=== PATIENT | female | born 1995 | race Caucasian/White ===

== ENCOUNTER 2016-12-24 21:11 | Emergency (ER) | payer OTHER ==
[~2016-12-24] VITALS: Ht 157.5 cm; Wt 62.1 kg
[2016-12-24 21:14] VITALS: TEMP 36.7; Ht 157.5 cm; Wt 62.1 kg
[2016-12-24] MEDS ORDERED: KETOROLAC TROMETHAMINE 30 MG/ML VIAL IV STA (21:49)
[2016-12-24] MEDS ORDERED: ONDANSETRON INJ 2 MG/ML 2 ML VIAL IV STA (21:49)
[2016-12-24] MEDS ORDERED: SODIUM CHLORIDE 0.9% 1000ML 1,000 ML IV STA (21:49)
[2016-12-24] MEDS ORDERED: BCPILLS PO (22:15)
[2016-12-24 22:16] LABS: URINE APPEARANCE CLEAR (CLEAR); URINE BILIRUBIN NEG (NEG); URINE COLOR YELLOW; URINE EPITHELIAL CELL AUTO >30 /lpf (0-5); URINE NITRITE NEG (NEG); URINE PH 5.5 (4.5-7.5); URINE SPECIFIC GRAVITY 1.015 (1.000-1.030); UROBILINOGEN NEG (NEG); ZZUR CULT IF INDIC CLEAN CATCH NO
[2016-12-24 22:25] LABS: MANUAL MICROSCOPIC REQUIRED? NO; REVIEW REQ? NO
[2016-12-24 22:30] LABS: BASO % 0.5 %; BASO ABS # 0.05 K/uL (0-0.2); COMPLETE YES; EOS % 3.3 %; HEMATOCRIT 41.1 % (37-47); IG% 0.4 %; LYMPH % 27.6 %; LYMPH ABS # 2.87 K/uL (1.2-3.4); MEAN CELL VOLUME 83.7 fL (80-100); MEAN CORPUSCULAR HEMOGLOBIN 30.8 pg (25-34); MEAN CORPUSCULAR HGB CONC 36.7 g/dl (32-36); MEAN PLATELET VOLUME 8.8 fL (7.4-10.4); MONO % 7.5 %; NEUT % 60.7 %; PLATELET COUNT 256 K/uL (130-400); RED BLOOD COUNT 4.91 M/uL (4.2-5.4)
[2016-12-24 22:50] LABS: BUN/CREATININE RATIO 14.1 (10-20); CALCIUM 9.6 mg/dl (8.5-10.1); CREATININE 0.83 mg/dl (0.60-1.20); POTASSIUM 3.1 mmol/L (3.5-5.1)
[2016-12-25] MEDS ORDERED: MoRPHine SULFATE 10 MG/ML CARP/VIAL IV STA (00:44)
[2016-12-25] MEDS ORDERED: ONDANSETRON INJ 2 MG/ML 2 ML VIAL IV STA (00:48)
[2016-12-25] MEDS ORDERED: ONDANSETRON INJ 2 MG/ML 2 ML VIAL ONE (00:50)
--- NOTE | 2016-12-25 01:44 | EMERGENCY ROOM VISIT NOTE ---
History First contact with patient: 21:40 Chief Complaint: FLANK PAIN Stated Complaint: RT SIDE ABD PAIN History of Present Illness The patient is a 21 year old female who presents to the Emergency Room with complaints of right-sided abdominal pain which began abruptly 2 hours ago. The patient states the pain is in the right lower back and radiates into the abdomen. She has associated nausea, no vomiting. She denies any urinary symptoms, vaginal bleeding or vaginal discharge. She states the pain had a sudden onset and rates the discomfort a 6/10. She denies any history of similar symptoms. She denies any history of abdominal surgery. She does not take anything for pain prior to arrival here. Review of Systems A complete 10 point review of systems was reviewed with the patient with pertinent positives and negatives as per history of present illness. All else were negative. Social History Smoking Status: Current Every Day Smoker Current/Historical Medications Scheduled Control Pills ( Control Pills), 1 TAB PO DAILY Allergies Coded Allergies: No Known Allergies (Unverified , 12/24/16) Physical Exam Vital Signs Date Time Temp Pulse Resp B/P (MAP) Pulse Ox O2 Delivery O2 Flow Rate FiO2 12/25/16 01:53 82 114/78 98 12/25/16 01:41 99 21 99 12/25/16 01:00 104 18 109/73 99 12/25/16 00:59 109/73 12/25/16 00:42 95 18 119/83 100 12/24/16 22:41 87 19 125/63 99 Room Air 12/24/16 21:14 36.7 120 18 129/84 98 Room Air Physical Exam VITALS: Vitals are noted on the nurse's note and reviewed by myself. Vital signs stable. GENERAL: This is a 21-year-old female, in no acute distress, nondiaphoretic, well-developed well-nourished. HEART: Regular rate and rhythm without murmurs gallops or rubs. LUNGS: Clear to auscultation bilaterally without wheezes, rales or rhonchi. ABDOMEN: Positive bowel sounds x 4. Soft, moderate tenderness to palpation in the right lower quadrant. Negative Rovsing sign. No guarding or rebound tenderness. NEURO: Patient was alert and oriented to person place and time. Medical Decision & Procedures ER Provider Diagnostic Interpretation: US PELVIC/ENDOVAG: Impression: Unremarkable pelvic ultrasound.2.5 x 2.0 x 2.6 cm right simple ovarian cyst along with small right paraovarian cyst. Right ovary demonstrates normal color flow and normal arterial Doppler waveforms. Radiologist: Lincoln Edwards MD US APPENDIX: The uterus is normal in size. The endometrium is normal in thickness. The ovaries are normal in size and in appearance. 2.6 cm follicle in the right ovary. Normal vascular flow bilaterally. Minimal free fluid in the pelvis. Appendix is not visualized. Radiologist: Lincoln Edwards MD CT ABDOMEN & PELVIS: Trace free fluid in the right adnexal and pelvic regions. May be due to physiologic changes or a recently ruptured ovarian cyst. No hydronephrosis or hydroureter. No radiopaque ureteral stone. The appendix is at the upper limits of normal in caliber. No periods appendiceal edema/ stranding. Question mild mesenteric lymphadenopathy of the midabdomen. It may be reactive to settle underlying infection such as an enteritis. Remainder of noncontrast study shows no evidence for an acute inflammatory process. Radiologist: Elias Bunn MD Laboratory Results 12/24/16 22:15 Red Blood Count 4.91, Mean Corpuscular Volume 83.7, Mean Corpuscular Hemoglobin 30.8, Mean Corpuscular Hemoglobin Concent 36.7, Mean Platelet Volume 8.8, Neutrophils (%) (Auto) 60.7, Lymphocytes (%) (Auto) 27.6, Monocytes (%) (Auto) 7.5, Eosinophils (%) (Auto) 3.3, Basophils (%) (Auto) 0.5, Neutrophils # (Auto) 6.32, Lymphocytes # (Auto) 2.87, Monocytes # (Auto) 0.78, Eosinophils # (Auto) 0.34, Basophils # (Auto) 0.05 12/24/16 22:15 Test 12/24/16 21:55 12/24/16 22:15 Urine Color YELLOW Urine Appearance CLEAR (CLEAR) Urine pH 5.5 (4.5-7.5) Urine Specific Sayner 1.015 (1.000-1.030) Urine Protein NEG (NEG) Urine Glucose (UA) NEG (NEG) Urine Ketones NEG (NEG) Urine Occult Blood 1+ (NEG) Urine Nitrite NEG (NEG) Urine Bilirubin NEG (NEG) Urine Urobilinogen NEG (NEG) Urine Leukocyte Esterase NEG (NEG) Urine WBC (Auto) 1-5 /hpf (0-5) Urine RBC (Auto) 0-4 /hpf (0-4) Urine Hyaline Casts (Auto) 0 /lpf (0-5) Urine Epithelial Cells (Auto) >30 /lpf (0-5) Urine Bacteria (Auto) NEG (NEG) Urine Test NEG (NEG) White Blood Count 10.40 K/uL (4.8-10.8) Red Blood Count 4.91 M/uL (4.2-5.4) Hemoglobin 15.1 g/dL (12.0-16.0) Hematocrit 41.1 % (37-47) Mean Corpuscular Volume 83.7 fL (80-100) Mean Corpuscular Hemoglobin 30.8 pg (25-34) Mean Corpuscular Hemoglobin Concent 36.7 g/dl (32-36) Platelet Count 256 K/uL (130-400) Mean Platelet Volume 8.8 fL (7.4-10.4) Neutrophils (%) (Auto) 60.7 % Lymphocytes (%) (Auto) 27.6 % Monocytes (%) (Auto) 7.5 % Eosinophils (%) (Auto) 3.3 % Basophils (%) (Auto) 0.5 % Neutrophils # (Auto) 6.32 K/uL (1.4-6.5) Lymphocytes # (Auto) 2.87 K/uL (1.2-3.4) Monocytes # (Auto) 0.78 K/uL (0.11-0.59) Eosinophils # (Auto) 0.34 K/uL (0-0.5) Basophils # (Auto) 0.05 K/uL (0-0.2) RDW Standard Deviation 36.3 fL (36.4-46.3) RDW Coefficient of Variation 11.9 % (11.5-14.5) Immature Granulocyte % (Auto) 0.4 % Immature Granulocyte # (Auto) 0.04 K/uL (0.00-0.02) Anion Gap 9.0 mmol/L (3-11) Est Creatinine Clear Calc Drug Dose 93.7 ml/min Estimated GFR () 117.7 Estimated GFR (Non- 101.5 BUN/Creatinine Ratio 14.1 (10-20) Calcium Level 9.6 mg/dl (8.5-10.1) Total Bilirubin 0.8 mg/dl (0.2-1) Direct Bilirubin 0.2 mg/dl (0-0.2) Aspartate Amino Transf (AST/SGOT) 16 U/L (15-37) Alanine Aminotransferase (ALT/SGPT) 21 U/L (12-78) Alkaline Phosphatase 69 U/L (45-117) Total Protein 8.0 gm/dl (6.4-8.2) Albumin 4.2 gm/dl (3.4-5.0) Lipase 134 U/L (73-393) Medications Administered Medications (Trade) Dose Ordered Sig/Leatha Route Start Time Stop Time Status Last Admin Dose Admin Sodium Chloride 1,000 ml @ 999 mls/hr Q1H1M STAT IV 12/24/16 21:49 12/24/16 22:49 DC 12/24/16 22:39 999 MLS/HR Ondansetron HCl (Zofran Inj) 4 mg NOW STAT IV 12/24/16 21:49 12/24/16 21:50 DC 12/24/16 22:39 4 MG Ketorolac Tromethamine (Toradol Inj) 30 mg NOW STAT IV 12/24/16 21:49 12/24/16 21:50 DC 12/24/16 22:39 30 MG Morphine Sulfate (MoRPHine SULFATE INJ) 6 mg NOW STAT IV 12/25/16 00:44 12/25/16 00:46 DC 12/25/16 00:54 6 MG Ondansetron HCl (Zofran Inj) 4 mg NOW STAT IV 12/25/16 00:48 12/25/16 00:49 DC 12/25/16 00:52 4 MG ED Course The patient was evaluated as above. Labs were drawn and IV access was obtained. Patient was medicated with 1 L normal saline solution and 30 mg Toradol. Pelvic ultrasound was performed and read by radiology as above. Patient had continued pain and was given 6 mg morphine and 4 mg Zofran. Patient was reevaluated and felt much better. She requested something to eat and was given a turkey sandwich. Discharge instructions were reviewed with the patient. The patient verbalized understanding of my assessment and treatment plan and was discharged home in good condition. Medical Decision Differential diagnosis includes ovarian cyst, ovarian torsion, urinary tract infection, appendicitis, kidney stone, among others. The patient is a 21-year-old female who presents today complaining of right lower quadrant abdominal pain. Pain was sudden in onset. She has no associated vomiting or fever. No leukocytosis. Ultrasound showed small right ovarian cyst. CT scan was performed due to concern for possible kidney stone given the sudden onset of patient's pain and radiation into the back. This showed, trace free fluid, possibly secondary to a recently ruptured ovarian cyst. I do feel this is the most likely cause of the pain. Appendix was at the upper limits of normal, but no periappendiceal stranding to suggest acute appendicitis. Additionally, the patient's history does not fit the picture of acute appendicitis. On reexamination she felt much better and was eating a sandwich. I had a lengthy discussion with the patient. She will be discharged home but was instructed to return if she has worsening abdominal pain, vomiting , fevers or new/concerning symptoms. Based on the patient's presentation and work up, I feel the patient is stable for outpatient treatment. The patient was educated to return to the emergency department for any worsening of their current condition or new/concerning symptoms. She will follow up with her primary care provider. Medication reconciliation: I attest that I have personally reviewed the patient 's current medication list. Blood pressure screening: Patient was found to have normal blood pressure on screening and does not require follow-up. Impression Primary Impression: Right lower quadrant pain Departure Information Dispostion Home / Self-Care Condition GOOD Referrals Eduardo Mesa (PCP) Patient Instructions My [facility] Additional Instructions You have been treated in the Emergency Department your Abdominal Pain. Laboratory results and imaging studies have ruled out any emergent causes for your abdominal pain which would warrant admission or surgery. For pain control, you can use the following [id number] medicines (if >12 yo): - Regular strength (325mg/tab) Tylenol (acetaminophen) 2 tabs every 4-6 hours as needed. Do not exceed 12 tablets in a 24 hour period. Avoid taking more than 4 grams (4000 mg) of Tylenol per day. This includes any other sources of acetaminophen you may take on a regular basis. - Regular strength (200 mg/tab) Advil (ibuprofen) 4 tabs every 6 hours as needed. Do not exceed a dose of 3200 mg per day. Drink plenty of water and stay well hydrated. Follow up with your [facility]. Your ultrasound showed evidence of an ovarian cyst. Return to the emergency department if your symptoms persist despite treatment plan outlined above or if the following symptoms occur: fever, vomiting, loss of appetite, or increasing pain.
[2016-12-25 01:53] VITALS: BP 114/78; PULSE 82; O2SAT 98
--- NOTE | 2016-12-25 06:46 | DIAGNOSTIC IMAGING REPORT ---
EXAMINATION: PELVIC ULTRASOUND (transabdominal and endovaginal scanning. CLINICAL HISTORY: RLQ pain, nausea COMPARISON STUDY: None FINDINGS: The uterus measured 7.4 x 3.2 x 4 cm.. The endometrial stripe measured 10 mm. The right ovary measured 35 x 22 x 33 mm. There is a 27 mm right ovarian cyst and 18 mm paraovarian cyst The left ovary measured 23 x 18 x 16 mm.. There is no ultrasonographic evidence of ovarian torsion. It should be noted that ovarian torsion can be present with normal Doppler ultrasonographic findings. There is minimal free fluid within the cul-de-sac. IMPRESSION: 1. Ultrasonographically normal uterus 2. 27 mm right ovarian cyst likely functional. 18 mm right-sided para ovarian cyst 3. Minimal free fluid within the cul-de-sac Electronically signed by: Marcelino Logan M.D. 12/25/2016 6:44 AM Dictated Date/Time: 12/25/2016 6:42 AM
--- NOTE | 2016-12-25 06:46 | DIAGNOSTIC IMAGING REPORT ---
APPENDIX ULTRASOUND CLINICAL HISTORY: RLQ pain, nausea COMPARISON STUDY: No previous studies for comparison. FINDINGS: The appendix was nonvisualized. No abnormal right lower quadrant masses are visualized. IMPRESSION: Nonvisualization the appendix. This examination is nondiagnostic in regards to acute appendicitis Electronically signed by: Marcelino Logan M.D. 12/25/2016 6:45 AM Dictated Date/Time: 12/25/2016 6:45 AM
--- NOTE | 2016-12-25 07:16 | DIAGNOSTIC IMAGING REPORT ---
CT SCAN OF THE ABDOMEN AND PELVIS WITHOUT CONTRAST CLINICAL HISTORY: RIGHT LOWER QUADRANT ABDOMINAL PAIN COMPARISON STUDY: No previous studies for comparison. TECHNIQUE: CT scan of the abdomen and pelvis was performed from the lung bases to the proximal femurs. Images are reviewed in the axial, sagittal, and coronal planes. IV contrast was not administered for this examination. CT DOSE: 529.14 mGy.cm FINDINGS: Lower chest: The heart is normal in size and configuration, without pericardial effusion. The lung bases and pleural spaces are clear. Liver: The unenhanced liver is normal in size, contour, and attenuation. There is no intrahepatic biliary ductal dilatation. Gallbladder: Unremarkable. Spleen: Normal in size and attenuation. Pancreas: Unremarkable. Adrenal glands: Unremarkable. Kidneys: No renal, ureteral, or bladder calculi are visualized. Bowel: There are no transition zones indicate bowel obstruction. The appendix appears normal. There is no acute diverticulitis. Peritoneum: There is trace free pelvic fluid. Vasculature: The abdominal aorta is normal in course and caliber. Adenopathy: None. Pelvic viscera: There is a 25 mm right ovarian follicle. There is a suspected 12 mm right para ovarian cyst. Skeletal structures: No destructive osseous lesions are seen. IMPRESSION: 1. No evidence of bowel obstruction. No evidence of free air 2. No renal, ureteral, or bladder calculi identified 3. Normal appendix 4. No evidence of acute diverticulitis. Electronically signed by: Marcelino Logan M.D. 12/25/2016 7:14 AM Dictated Date/Time: 12/25/2016 7:12 AM
== END 2016-12-25 01:55 | disposition home or self-care (01) ==
LOC: C.EDB 21:12
DX: R10.31 Right lower quadrant pain (principal); F17.210 Nicotine dependence, cigarettes, uncomplicated; Z79.3 Long term (current) use of hormonal contraceptives

== ENCOUNTER 2017-03-26 17:43 | Emergency (ER) | payer OTHER ==
[~2017-03-26] VITALS: Ht 157.5 cm; Wt 64.3 kg
[~2017-03-26 17:43] MED LIST: BCPILLS PO
[2017-03-26 17:49] VITALS: TEMP 37; Ht 157.5 cm; Wt 64.3 kg
[2017-03-26 18:22] LABS: BASO % 0.3 %; BASO ABS # 0.02 K/uL (0-0.2); COMPLETE YES; EOS % 0.3 %; HEMATOCRIT 39.8 % (37-47); IG% 0.3 %; LYMPH % 27.3 %; MEAN CORPUSCULAR HEMOGLOBIN 30.1 pg (25-34); MEAN CORPUSCULAR HGB CONC 35.4 g/dl (32-36); MEAN PLATELET VOLUME 9.1 fL (7.4-10.4); MONO % 7.2 %; NEUT % 64.6 %; PLATELET COUNT 240 K/uL (130-400); RED BLOOD COUNT 4.68 M/uL (4.2-5.4); WHITE BLOOD COUNT 5.86 K/uL (4.8-10.8)
[2017-03-26 18:39] LABS: CALCIUM 8.7 mg/dl (8.5-10.1); CREATININE 0.83 mg/dl (0.60-1.20); POTASSIUM 3.8 mmol/L (3.5-5.1)
--- NOTE | 2017-03-26 18:42 | EMERGENCY ROOM VISIT NOTE ---
History First contact with patient: 17:52 Chief Complaint: RIB PAIN Stated Complaint: PAIN ON RIGHT SIDE WHEN COUGH, HEAD HURTS History of Present Illness The patient is a 21 year old female who presents to the Emergency Room with complaints of right-sided rib pain. The patient states that she has had a pain in her right lower ribs for the past 2 weeks. She reports that the pain has been fairly constant and is worse with cough, deep breath, and certain movements. She states that she had bronchitis recently and did have a significant cough at that time, so she is unsure if she could have injured a rib. She denies any trauma to the ribs. She is an occasional smoker. She states that she recently stopped taking control pills. She denies any recent long trips. She does report a family history of blood clots in her grandmother. She denies any personal history of blood clots. The patient reports she has had an occasional productive cough. She denies any fevers. Review of Systems A complete 10 point review of systems was reviewed with the patient with pertinent positives and negatives as per history of present illness. All else were negative. Social History Smoking Status: Current Every Day Smoker Current/Historical Medications No Active Prescriptions or Reported Meds Physical Exam Vital Signs Date Time Temp Pulse Resp B/P (MAP) Pulse Ox O2 Delivery O2 Flow Rate FiO2 03/26/17 19:37 85 18 106/58 98 Room Air 03/26/17 17:49 37.0 87 18 126/85 99 Room Air Physical Exam VITALS: Vitals are noted on the nurse's note and reviewed by myself. Vital signs stable. GENERAL: This is a 21-year-old female, in no acute distress, nondiaphoretic, well-developed well-nourished. HEENT: Normocephalic. PERRLA. Tympanic membranes pearly mccurdy bilaterally. Mucous membranes moist. Neck is supple without nuchal rigidity. HEART: Regular rate and rhythm without murmurs gallops or rubs. LUNGS: Clear to auscultation bilaterally without wheezes, rales or rhonchi. No retractions or accessory muscle use. ABDOMEN: Soft, nontender to palpation. NEURO: Patient was alert and oriented to person place and time. Medical Decision & Procedures ER Provider Diagnostic Interpretation: R RIBS UNILATERAL WITH PA CHEST HISTORY: 21 years-old Female right rib pain acute right-sided rib pain status post coughing COMPARISON: None available TECHNIQUE: Frontal view of the chest with 4 views of the right ribs FINDINGS: Cardiomediastinal and hilar silhouettes are within normal limits. No pneumothorax, pleural effusion or focal airspace consolidation. Ribs appear intact without acute fracture identified. Imaged upper abdominal structures are unremarkable. Mildly prominent loop of small bowel in the left midabdomen, 2.8 cm is likely incidental. IMPRESSION: 1. No acute cardiopulmonary process. 2. No acute rib fracture identified. Laboratory Results 03/26/17 18:10 Red Blood Count 4.68, Mean Corpuscular Volume 85.0, Mean Corpuscular Hemoglobin 30.1, Mean Corpuscular Hemoglobin Concent 35.4, Mean Platelet Volume 9.1, Neutrophils (%) (Auto) 64.6, Lymphocytes (%) (Auto) 27.3, Monocytes (%) (Auto) 7.2, Eosinophils (%) (Auto) 0.3, Basophils (%) (Auto) 0.3, Neutrophils # (Auto) 3.78, Lymphocytes # (Auto) 1.60, Monocytes # (Auto) 0.42, Eosinophils # (Auto) 0.02, Basophils # (Auto) 0.02 03/26/17 18:10 Test 03/26/17 18:10 White Blood Count 5.86 K/uL (4.8-10.8) Red Blood Count 4.68 M/uL (4.2-5.4) Hemoglobin 14.1 g/dL (12.0-16.0) Hematocrit 39.8 % (37-47) Mean Corpuscular Volume 85.0 fL (80-100) Mean Corpuscular Hemoglobin 30.1 pg (25-34) Mean Corpuscular Hemoglobin Concent 35.4 g/dl (32-36) Platelet Count 240 K/uL (130-400) Mean Platelet Volume 9.1 fL (7.4-10.4) Neutrophils (%) (Auto) 64.6 % Lymphocytes (%) (Auto) 27.3 % Monocytes (%) (Auto) 7.2 % Eosinophils (%) (Auto) 0.3 % Basophils (%) (Auto) 0.3 % Neutrophils # (Auto) 3.78 K/uL (1.4-6.5) Lymphocytes # (Auto) 1.60 K/uL (1.2-3.4) Monocytes # (Auto) 0.42 K/uL (0.11-0.59) Eosinophils # (Auto) 0.02 K/uL (0-0.5) Basophils # (Auto) 0.02 K/uL (0-0.2) RDW Standard Deviation 37.4 fL (36.4-46.3) RDW Coefficient of Variation 12.2 % (11.5-14.5) Immature Granulocyte % (Auto) 0.3 % Immature Granulocyte # (Auto) 0.02 K/uL (0.00-0.02) D-Dimer 190 ug/L FEU (0-500) Anion Gap 8.0 mmol/L (3-11) Est Creatinine Clear Calc Drug Dose 95.2 ml/min Estimated GFR () 117.7 Estimated GFR (Non- 101.5 BUN/Creatinine Ratio 15.0 (10-20) Calcium Level 8.7 mg/dl (8.5-10.1) Medical Decision Differential diagnosis includes pneumonia, upper respiratory infection, rib fracture, rib sprain, pulmonary embolism, among others. The patient is a 21-year-old female who presents today complaining of right rib pain. Patient has had a cough recently. Labs revealed no leukocytosis. D- dimer was not elevated. Chest x-ray with right rib detail was unremarkable. Patient likely sustained a right rib strain. Conservative measures were discussed. She was advised to follow-up with her primary care provider as needed. She verbalized understanding of my assessment and treatment plan and was discharged home in good condition. Medication Reconcilliation Current Medication List: was personally reviewed by me Blood Pressure Screening Patient's blood pressure: Normal blood pressure Impression Primary Impression: Rib pain on right side Departure Information Dispostion Home / Self-Care Condition GOOD Prescriptions No Active Prescriptions or Reported Meds Referrals Eduardo Mesa (PCP) Patient Instructions My [facility] Additional Instructions You have been treated in the Emergency Department for Rib Pain. For pain control, you can use the following [id number] medicines (if >12 yo): - Regular strength (325mg/tab) Tylenol (acetaminophen) 2 tabs every 4-6 hours as needed. Do not exceed 12 tablets in a 24 hour period. Avoid taking more than 4 grams (4000 mg) of Tylenol per day. This includes any other sources of acetaminophen you may take on a regular basis. - Regular strength (200 mg/tab) Advil (ibuprofen) 3-4 tabs every 6 hours as needed. Do not exceed a dose of 3200 mg per day. If this is an acute injury, ice can be applied to the area of pain for the first 3 days to help decrease pain and inflammation. After the first 3 days, a heating pad can be used over the area for continued soothing relief. Follow-up with your primary care provider if you have persistent pain in 1 week. Return to the Emergency Department if your current symptoms worsen despite treatment course outlined above, or if you develop any of the following symptoms : Worsening pain, difficulty breathing, coughing up blood, or any other new/ concerning symptoms.
--- NOTE | 2017-03-26 19:14 | DIAGNOSTIC IMAGING REPORT ---
R RIBS UNILATERAL WITH PA CHEST HISTORY: 21 years-old Female right rib pain acute right-sided rib pain status post coughing COMPARISON: None available TECHNIQUE: Frontal view of the chest with 4 views of the right ribs FINDINGS: Cardiomediastinal and hilar silhouettes are within normal limits. No pneumothorax, pleural effusion or focal airspace consolidation. Ribs appear intact without acute fracture identified. Imaged upper abdominal structures are unremarkable. Mildly prominent loop of small bowel in the left midabdomen, 2.8 cm is likely incidental. IMPRESSION: 1. No acute cardiopulmonary process. 2. No acute rib fracture identified. The above report was generated using voice recognition software. It may contain grammatical, syntax or spelling errors. Electronically signed by: Loy Velasquez M.D. 03/26/2017 7:13 PM Dictated Date/Time: 03/26/2017 7:08 PM
[2017-03-26 19:37] VITALS: BP 106/58; PULSE 85; O2SAT 98
== END 2017-03-26 19:49 | disposition home or self-care (01) ==
LOC: C.EDB 17:45
DX: R07.89 Other chest pain (principal); R05 Cough; R51 Headache; F17.210 Nicotine dependence, cigarettes, uncomplicated

== ENCOUNTER 2017-08-13 21:42 | Emergency (ER) | payer OTHER ==
[~2017-08-13] VITALS: Ht 157.5 cm; Wt 55.6 kg
[2017-08-13 21:49] VITALS: TEMP 36.9; Ht 157.5 cm; Wt 55.6 kg
--- NOTE | 2017-08-13 22:12 | EMERGENCY ROOM VISIT NOTE ---
History Report prepared by Musa: Debbi Joseph Under the Supervision of: Dr. Bradley Tobar M.D. First contact with patient: 21:51 Chief Complaint: SYNCOPE Stated Complaint: FELL AND HIT HEAD DUE TO LIGHTHEADEDNESS History of Present Illness The patient is a 21 year old female who presents to the Emergency Room with complaints of and episode of lightheadedness and near-syncope beginning an hour ago. The patient states felt like she was going to "pass out" while at work and when she went to sit down she hit her head. The patient is absolutely sure she did not loose consciousness and states she remembers everything during the episode. The patient reports feeling weak, having abdominal pain, diarrhea, and nausea when she eats for the past month. She is unsure of a possible . The patient takes control. She denies any fevers. She also denies any alcohol or drug use. Source of History: patient Onset: an hour ago Position: other (generalized) Quality: other (near syncope) Timing: other (episode) Associated Symptoms: + nausea, + abdominal pain, + weakness, No fevers Review of Systems See HPI for pertinent positives and negatives. A total of ten systems were reviewed and were otherwise negative. Past Medical & Surgical Medical Problems: (1) No active medical problems Family History Patient reports no known family medical history. Social History Smoking Status: Current Some Day Smoker Marital Status: single Housing Status: lives with family Occupation Status: employed Current/Historical Medications Scheduled Control Pills ( Control Pills), 1 TAB PO DAILY Allergies Coded Allergies: Cephalosporins (Unverified Allergy, Severe, SEVERE HIVES, 03/26/17) Physical Exam Vital Signs Date Time Temp Pulse Resp B/P (MAP) Pulse Ox O2 Delivery O2 Flow Rate FiO2 08/13/17 23:06 80 20 127/75 98 Room Air 08/13/17 21:49 36.9 108 16 127/74 99 Room Air Physical Exam Physical Exam GENERAL: She is oriented to person, place, and time. She appears well- developed and well-nourished. She does not appear distressed. ____ HENT: Exam performed. Head: Normocephalic and atraumatic. Right Ear: External ear normal. No mastoid tenderness. Left Ear: External ear normal. No mastoid tenderness. Mouth/Throat: The oropharynx is clear and moist. No trismus in the jaw. No dental abscesses or uvula swelling. No oropharyngeal exudate or tonsillar abscesses. ____ EYES: Conjunctivae and EOM are normal. Pupils are equal, round, and reactive to light. Right eye exhibits no discharge. Left eye exhibits no discharge. No scleral icterus. ____ NECK: Normal range of motion. Neck supple. No JVD present. No spinous process tenderness present. No carotid bruit present. No rigidity. No tracheal deviation and normal range of motion present. No Brudzinski's sign and no Kernig 's sign noted. ____ CV: Normal rate, regular rhythm, normal heart sounds and intact distal pulses. There is no peripheral edema. Palpable radial pulses bue. ____ PULM/CHEST: Effort normal and breath sounds normal. No respiratory distress. No stridor. She has no wheezes. She has no rales. Chest Wall: She exhibits no tenderness. ____ ABD: The abdomen is soft. Bowel sounds are normal. She has no distension. No mass is present. There is no tenderness. There is no rebound, no guarding, no Morley's sign and no tenderness at McBurney's point. Rovsig negative MUSC/SKEL: Normal range of motion. There is no peripheral edema, tenderness or deformity. LYMPH: No cervical adenopathy. ____ NEURO: She is alert and oriented to person, place, and time. She has normal strength. No cranial nerve deficit or sensory deficit. Coordination and gait normal. GCS eye subscore is 4. GCS verbal subscore is 5. GCS motor subscore is 6. Cerebellar tests wnl. ____ SKIN: Skin is warm and dry. She is not diaphoretic. ____ PSYCH: She has a normal mood and affect. Her behavior is normal. Judgment and thought content normal. ____ Medical Decision & Procedures Laboratory Results Test 08/13/17 22:22 08/13/17 22:27 Urine Color YELLOW Urine Appearance CLEAR (CLEAR) Urine pH 7.5 (4.5-7.5) Urine Specific [place] 1.005 (1.000-1.030) Urine Protein NEG (NEG) Urine Glucose (UA) NEG (NEG) Urine Ketones NEG (NEG) Urine Occult Blood 3+ (NEG) Urine Nitrite NEG (NEG) Urine Bilirubin NEG (NEG) Urine Urobilinogen NEG (NEG) Urine Leukocyte Esterase NEG (NEG) Urine WBC (Auto) 0 /hpf (0-5) Urine RBC (Auto) 5-10 /hpf (0-4) Urine Hyaline Casts (Auto) 1-5 /lpf (0-5) Urine Epithelial Cells (Auto) >30 /lpf (0-5) Urine Bacteria (Auto) NEG (NEG) Urine Yeast (Auto) (NONE PRSENT) Urine Test NEG (NEG) Bedside Hemoglobin 12.6 g/dl (12.0-16.0) Bedside Hematocrit 37 % (37-47) Bedside Sodium 141 mEq/L (135-144) Bedside Potassium 3.1 mEq/L (3.3-5.0) Bedside Chloride 103 mEq/L (101-112) Bedside Total CO2 24 mEq/l (24-31) Anion Gap 19.0 mmol/L (16-25) Bedside Blood Urea Nitrogen 8 mg/dl (7-18) Bedside Creatinine 0.8 mg/dl Bedside Glucose (other) 103 mg/dl (70-99) Bedside Ionized Calcium (Elia) 1.18 mmol/l Laboratory results reviewed by me Medications Administered Medications (Trade) Dose Ordered Sig/Leatha Route Start Time Stop Time Status Last Admin Dose Admin Potassium Chloride (Klor-Con M10) 40 meq NOW STAT PO 08/13/17 22:45 08/13/17 22:46 DC 08/13/17 23:05 40 MEQ ECG Per My Interpretation Indication: syncope (near) Rate (beats per minute): 85 Rhythm: other (sinus arhythmia) Findings: other (mild T-wave flattening in lead 3, NV QRS and QTC within normal limits. No ST elevation or ST depression) ED Course 2158: The patient was evaluated in room A3. A complete history and physical exam was performed. 2244: Ordered Potassium Chloride 40 meq PO. 3: Vitals stable physical exam within normal limits. Patient confirms again that she never lost consciousness. Potassium was 3.1 which was replaced in the ED. She will be DC with follow up of PCP. 7: I reevaluated the patient. Discussed results and discharge instructions: She verbalized understanding and agreement. The patient is ready for discharge. Medical Decision Vitals stable physical exam within normal limits. Patient confirms again that she never lost consciousness. Potassium was 3.1 which was replaced in the ED. She will be DC with follow up of PCP. DISCHARGE - Plan of care discussed with patient and questions answered. The patient was given both verbal and printed discharge instructions. The patient verbalized understanding and ability to comply. The patient is to seek outpatient follow up as noted in the discharge instructions. The patient verbalized understanding and ability to comply. The patient is discharged in stable condition. The patient was instructed to return for worsening symptoms. Medication Reconcilliation Current Medication List: was personally reviewed by me Blood Pressure Screening Patient's blood pressure: Normal blood pressure Impression Primary Impression: Hypokalemia Additional Impression: Near syncope Scribe Attestation The scribe's documentation has been prepared under my direction and personally reviewed by me in its entirety. I confirm that the note above accurately reflects all work, treatment, procedures, and medical decision making performed by me. The chart was completed utilizing [employer] Speech voice recognition software. Grammatical errors, random word insertions, pronoun errors, and incomplete sentences are an occasional consequence of this system due to software limitations, ambient noise, and hardware issues. Any formal questions or concerns about the content, text, or information contained within the body of this dictation should be directly addressed to the physician for clarification. Departure Information Dispostion Home / Self-Care Referrals Eduardo Mesa (PCP) Forms HOME CARE DOCUMENTATION FORM, IMPORTANT VISIT INFORMATION Patient Instructions ED Near Syncope Vasovagal, Hypokalemia [place], [facility] Problem Qualifiers
[2017-08-13] MEDS ORDERED: BCPILLS PO (22:23)
[2017-08-13 22:40] LABS: ISTAT CREATININE 0.8 mg/dl; ISTAT IONIZED CALCIUM 1.18 mmol/l; ISTAT POTASSIUM 3.1 mEq/L (3.3-5.0)
[2017-08-13] MEDS ORDERED: POTASSIUM CHLORIDE 10 MEQ TABCR PO STA (22:45)
[2017-08-13 23:06] VITALS: BP 127/75; PULSE 80; O2SAT 98
== END 2017-08-13 23:09 | disposition home or self-care (01) ==
LOC: C.EDB 21:42 → C.EDA 23:09
DX: E87.6 Hypokalemia (principal); R55 Syncope and collapse; F17.200 Nicotine dependence, unspecified, uncomplicated

== ENCOUNTER → 2018-01-25 | Outpatient (CLI) | payer OTHER | END | disposition home or self-care (01) | LOC: C.LAB 07:06 | DX: Z02.83 Encounter for blood-alcohol and blood-drug test (principal) ==

== ENCOUNTER 2019-08-23 01:50 | Inpatient (IN) ==
[2019-08-23] MEDS ORDERED: OXYTOCIN 30 UNITS/500 ML BAG IV PRN ×3 (04:24→21:01)
[2019-08-23] MEDS: LACTATED RINGER'S 1,000 ML IV PRN ×3 (04:46→12:15)
[2019-08-23] MEDS ORDERED: ePHEDrine sulfate 50 MG/ML AMP ONE (04:56)
[2019-08-23] MEDS ORDERED: fentaNYL citrate 100 MCG/2 ML VIAL ONE (04:56)
[2019-08-23] MEDS ORDERED: BUPIVACAINE 0.25% 30 ML VIAL ONE ×2 (04:57→16:36)
[2019-08-23] MEDS ORDERED: fentaNYL 2MCG/ML ROPIV 1.25MG/ML 100 ML BAG EPI ONE (04:57)
--- NOTE | 2019-08-23 05:07 | History & Physical Report ---
Date of Service August 23, 2019 Assessment & Plan (1) Active labor at term: (2) Need for rhogam due to Rh negative mother: admit, iv, labs. plan epidural. fhts categ 1. plan arom when comfortable. pt and partner agreeable. History of Present Illness Chief Complaint: contractions Primary Care Provider: Irasema Lugo PA-C 23yo at 38w3d ega present to L&D with above cc. Patient noted ctx through the night and came for evaluation. On arrival cx was 1.5cm but 2hr later was 4cm and deemed ready for admission. She is experiencing painful ctx. No rom. No vb. +FM. Wants epidural. PNC c/b 1. rh neg PNL rh neg, ri, gbs neg OBH: g1 GYNH: nl paps, stds PMH: neg PSH: neg Allergies Allergy/AdvReac Type Severity Reaction Status Date / Time Cephalosporins Allergy Severe SEVERE Verified 08/16/19 07:19 HIVES Home Medications Home Medications Medication Instructions Recorded Confirmed Type [id number] 400 mcg-om3 35 mg-dha 25 1 tab PO DAILY tab 03/02/19 08/23/19 History mg-epa 5 mg-fish oil chewable tablet Patient History Family History (Updated 03/02/19 @ 11:18 by Che Coles) Mother Breast cancer Social History (Updated 03/02/19 @ 11:20 by Che Coles) Preferred Language: Amharic Communication Ability: Effective Tank Insulator Rubber Required: No Beliefs That Will Affect Care: None marital status: Single marital status details: Марина Giron (24) [phone] Current Living Situation: Significant Other Current Living Situation Comment: lives with fob & roomate, cats-fob changing litter current occupational status: employed current occupation: [employer] Other Information That Helps Us Care for You: No Feels Safe at Home: Yes Safety Concerns: Feels Safe At This Time Smoking Status: Former smoker Hx Alcohol Use: No Hx Substance Use: No Physical Exam Constitutional: WD/WN, vitals as above Respiratory: normal respiratory effort, lungs clear to auscultation Cardiovascular: Rate/Rhythm: regular rate and regular rhythm Gastrointestinal (Abdomen): Percussion/Palpation: abdomen soft (gravid); abdomen nontender Neurologic: grossly normal Psychiatric: A+Ox3, euthymic affect Genitourinary: Manual OB Exam: + cervical dilation (per nurse) 4 cm, + cervical effacement 70% and + station -2 OB Exam Monitor Tracing: + external FHT monitor used (120 mod variability), + external uterine monitor used (q3-4), + category I and + normal FHT variability Results & Data Vital Signs (Past 12 Hours) Vital Signs Temp Pulse Resp BP 08/23/19 04:47 79 123/61 08/23/19 04:38 97.3 F L 18 08/23/19 01:56 72 119/72 08/23/19 01:54 97.9 F 18 Code Status & VTE Plan VTE Prophylaxis Plan VTE Prophylaxis will be ordered: No Coding Level of Care Code None Diagnoses Active labor at term Need for rhogam due to Rh negative mother Z29.13
[2019-08-23 05:27] LABS: Hematocrit (blood only) 35.6 % (37-47); Hemoglobin 12.2 g/dL (12.0-16.0); Mean Corpuscular Hemoglobin 29.6 pg (25-34); Mean Corpuscular Volume 86.4 fL (80-100); Mean Platelet Volume 10.1 fL (7.4-10.4); Platelet Count 268 K/uL (130-400); RDW Coefficient of Variation 12.9 % (11.5-14.5); RDW Standard Deviation 41.1 fL (36.4-46.3); Red Blood Count 4.12 M/uL (4.2-5.4)
[2019-08-23 05:30] LABS: Mean Corpuscular Hgb Conc 34.3 g/dL (32-36)
--- NOTE | 2019-08-23 05:42 | Anesthesiology Consultation ---
Date of Service August 23, 2019 Assessment & Plan (1) Encounter for pre-operative examination: Chart Review Chart Review: Patient NOT seen in Pre Admission Testing and Acceptable Risk for Labor Epidural Consults Requested none ASA ASA2 Proposed Anesthesia Anesthesia Type: Labor Epidural Risk / Benefits Reviewed With: PT / POA / Parent / Guardian, Accepts Plan and Informed Consent Obtained History Height/Weight Height: 5 ft 2 in Weight: 68.039 kg Allergies Allergy/AdvReac Type Severity Reaction Status Date / Time Cephalosporins Allergy Severe SEVERE Verified 08/16/19 07:19 HIVES Medications Home Medications Medication Instructions Recorded Confirmed Last Taken [id number] 400 mcg-om3 35 mg-dha 25 1 tab PO DAILY tab 03/02/19 08/23/19 08/22/19 08:00 mg-epa 5 mg-fish oil chewable tablet Active Medications Generic Name Dose Route Start Last Admin Trade Name Freq PRN Reason Stop Dose Admin Lactated Ringer's 1,000 mls @ 125 mls/hr 08/23/19 04:24 08/23/19 05:50 Lr IV 08/25/19 04:23 125 mls/hr .Q8H PRN Administration L&D Protocol Protocol NPO Date Last Intake of Fluids: 08/23/19 Time Last Intake of Fluids: 06:23 Date Last Intake of Solids: 08/23/19 Time Last Intake of Solids: 04:00 Past Medical History Medical History Varicella vaccination Exercise / Class Metabolic Activity II 4-5 Yardwork/Stairs/Walk up hill Past Family History Family History Mother Breast cancer Past Anesthesia History No Family Hx of Anesthesia Complications History of PONV No Hx of PONV Social History Smoking Status: Former smoker Hx Alcohol Use: No Hx Substance Use: No Review of Systems Patient denies history of abnormal bleeding or bleeding disorder. Patient denies active use of anticoagulants other than low dose aspirin. Negative for chest pain or shortness of breath. Patient denies numbness, tingling or weakness in lower extremities. Physical Exam Vital Signs Last Vital Signs Temp 36.3 C L 08/23/19 04:38 Pulse 70 08/23/19 05:37 Resp 18 08/23/19 04:38 BP 123/61 08/23/19 04:47 Pulse Ox 100 08/23/19 05:37 Constitutional not obese (Gravid uterus) ENMT Mouth: + small oral opening; no TMJ abnormality Thyromental Distance: > or= 3.5 Finger Breadths Mallampati Class: III Neck normal visual inspection; neck extension not limited Respiratory normal respiratory effort Auscultation: lungs clear to auscultation bilaterally Cardiovascular Rate/Rhythm: regular rate and regular rhythm Heart Sounds: no murmur Neurologic moves all extremities Motor/Sensory: no sensory deficit Psychiatric Orientation: alert and oriented x 3 Testing Laboratory Results 08/23/19 04:47
[2019-08-23] MEDS ORDERED: NALOXONE HCL 1 MG in SODIUM CHLORIDE 0.9% 1000ML 1,000 ML IV PRN (06:33)
[2019-08-23] MEDS ORDERED: ePHEDrine sulfate 50 MG/ML AMP IV PRN (06:33)
[2019-08-23] MEDS ORDERED: DiphenhydrAMINE HCL 50 MG/ML VIAL IV PRN (06:33)
[2019-08-23] MEDS ORDERED: ONDANSETRON INJ 2 MG/ML 2 ML VIAL IV PRN (06:33)
[2019-08-23] MEDS ORDERED: NALOXONE HCL 0.4 MG/1 ML VIAL/CARP IV PRN (06:33)
[2019-08-23] MEDS ORDERED: NALBUPHINE HCL INJ 10 MG/ML AMP IV PRN (06:33)
--- NOTE | 2019-08-23 08:11 | Labor Progress Brief Note ---
Date of Service August 23, 2019 Subjective Reason For Note: Routine Evaluation comfortable with epidural. Assessment & Plan (1) Active labor at term: (2) Need for rhogam due to Rh negative mother: some cx change. will see how arom augments pattern. fhts categ 1 Physical Exam Constitutional: WD/WN, vitals as above Genitourinary: Manual OB Exam: + cervical dilation (4-5), + cervical effacement 80%, + station -2 and + amniotic fluid (arom ) clear OB Exam Monitor Tracing: + external FHT monitor used (130 mod variability), + external uterine monitor used (q2-3), + category I and + normal FHT variability Results & Data Vital Signs (Past 12 Hours) Vital Signs Temp Pulse Resp BP Pulse Ox 08/23/19 08:07 68 99 08/23/19 08:05 75 100/56 L 08/23/19 08:02 82 100 08/23/19 07:57 77 99 08/23/19 07:52 83 111/64 99 08/23/19 07:47 84 100 08/23/19 07:42 75 100 08/23/19 07:37 91 H 100 08/23/19 07:36 76 119/73 08/23/19 07:32 96 H 100 08/23/19 07:29 87 91 08/23/19 07:27 89 99 08/23/19 07:22 111 H 99 08/23/19 07:17 86 100 08/23/19 07:14 84 93 08/23/19 07:12 89 98 08/23/19 07:07 99 H 99 08/23/19 07:03 97.7 F 20 08/23/19 07:02 73 99 08/23/19 07:00 18 08/23/19 06:57 79 100 08/23/19 06:52 85 100 08/23/19 06:50 100 H 106/63 08/23/19 06:49 75 94/47 L 08/23/19 06:47 98 H 100 08/23/19 06:45 18 08/23/19 06:43 67 114/66 08/23/19 06:42 84 100 08/23/19 06:38 93 H 123/53 L 08/23/19 06:37 70 100 08/23/19 06:34 83 124/68 08/23/19 06:32 87 100 08/23/19 06:30 18 08/23/19 06:29 98 H 118/74 08/23/19 06:27 85 99 08/23/19 06:25 18 08/23/19 06:24 80 107/65 08/23/19 06:22 71 100 08/23/19 06:20 18 08/23/19 06:18 70 122/62 08/23/19 06:17 83 99 08/23/19 06:16 90 126/83 08/23/19 06:15 18 08/23/19 06:13 97 H 116/72 08/23/19 06:12 85 108/62 98 08/23/19 06:11 18 08/23/19 06:10 104 H 106/57 L 08/23/19 06:08 99 H 131/70 08/23/19 06:07 81 99 08/23/19 06:02 76 99 08/23/19 05:57 79 98 08/23/19 05:52 100 H 100 08/23/19 05:47 100 H 100 08/23/19 05:42 77 100 08/23/19 05:37 70 100 08/23/19 05:32 73 100 08/23/19 04:47 79 123/61 08/23/19 04:38 97.3 F L 18 08/23/19 01:56 72 119/72 08/23/19 01:54 97.9 F 18 Coding Level of Care Code None Diagnoses Active labor at term Need for rhogam due to Rh negative mother Z29.13
[2019-08-23] MEDS: fentaNYL 2MCG/ML ROPIV 1.25MG/ML 100 ML BAG EPI PRN ×2 (13:47→18:44)
--- NOTE | 2019-08-23 14:40 | Labor Progress Brief Note ---
Date of Service August 23, 2019 Subjective comfortable with epidural. Assessment & Plan (1) Supervision of normal first : 23yo at 38+ weeks GA. Labor 1. Fetus. Cat 1 at present. Periods of cat 2. 2. Labor: Progressing slowly. Will restart pitocin when Cat 1 FHR tracing for 30 minutes. 3. Vitals: WNL (2) Need for rhogam due to Rh negative mother: Physical Exam Genitourinary: Manual OB Exam: + cervical dilation 6 cm, + cervical effacement 80%, + station -1 and + amniotic fluid clear OB Exam Monitor Tracing: + external FHT monitor used, + external uterine monitor used and + category I Results & Data Vital Signs (Past 12 Hours) Vital Signs Temp Pulse Resp BP Pulse Ox 08/23/19 14:35 73 104/57 L 08/23/19 14:20 76 98/54 L 08/23/19 14:05 63 99/53 L 08/23/19 13:52 62 98/55 L 08/23/19 13:36 69 118/60 08/23/19 13:31 74 92 08/23/19 13:28 68 100 08/23/19 13:23 69 95 08/23/19 13:21 76 121/59 L 08/23/19 13:15 124 H 100 08/23/19 13:13 91 H 84 L 08/23/19 13:10 93 H 100 08/23/19 13:07 81 131/57 L 08/23/19 13:06 77 89 L 08/23/19 13:05 78 98 08/23/19 13:00 98 H 85 L 08/23/19 12:59 92 H 93 08/23/19 12:55 75 100 08/23/19 12:51 70 102/55 L 93 08/23/19 12:50 80 100 08/23/19 12:48 36.5 C 20 08/23/19 12:45 68 91 08/23/19 12:40 80 100 08/23/19 12:35 69 116/60 100 08/23/19 12:30 75 100 08/23/19 12:26 82 89 L 08/23/19 12:25 80 100 08/23/19 12:20 88 118/64 100 08/23/19 12:15 81 99 08/23/19 12:10 82 100 03/05/20 12:06 75 98/67 L 08/23/19 12:05 72 100 08/23/19 12:00 74 100 08/23/19 11:55 70 100 08/23/19 11:50 71 94/53 L 99 08/23/19 11:45 67 98 08/23/19 11:40 67 99 08/23/19 11:37 80 98/50 L 08/23/19 11:35 86 98 08/23/19 11:30 69 99 08/23/19 11:26 71 92 08/23/19 11:25 73 96 08/23/19 11:21 77 97/53 L 08/23/19 11:20 80 90 08/23/19 11:15 74 93 08/23/19 11:09 78 93 08/23/19 11:08 85 79 L 08/23/19 11:07 74 152/58 H 08/23/19 11:03 77 92 08/23/19 10:58 68 90 08/23/19 10:56 65 88 L 08/23/19 10:51 61 125/59 L 89 L 08/23/19 10:50 103 H 88 L 08/23/19 10:42 87 80 L 08/23/19 10:37 69 95 08/23/19 10:36 68 116/57 L 08/23/19 10:34 72 92 08/23/19 10:32 78 91 08/23/19 10:28 229 H 76 L 08/23/19 10:23 70 97 08/23/19 10:20 73 97/60 L 89 L 08/23/19 10:17 85 96 08/23/19 10:14 79 91 08/23/19 10:12 65 99 08/23/19 10:07 69 92 08/23/19 10:06 62 94/52 L 08/23/19 10:02 66 96 08/23/19 09:57 64 100 08/23/19 09:52 68 100 08/23/19 09:51 71 97/52 L 08/23/19 09:47 67 100 08/23/19 09:42 61 100 08/23/19 09:38 36.5 C 20 08/23/19 09:37 84 98 08/23/19 09:35 117 H 98/53 L 08/23/19 09:32 62 98 08/23/19 09:27 76 98 08/23/19 09:22 84 99 08/23/19 09:20 65 92/45 L 08/23/19 09:17 67 99 08/23/19 09:12 83 99 08/23/19 09:07 62 99 08/23/19 09:05 66 103/51 L 08/23/19 09:02 69 98 08/23/19 08:57 72 99 08/23/19 08:52 73 99 08/23/19 08:51 80 107/57 L 08/23/19 08:47 65 98 08/23/19 08:42 63 98 08/23/19 08:37 68 100 08/23/19 08:36 74 103/52 L 08/23/19 08:32 70 99 08/23/19 08:27 69 100 08/23/19 08:22 81 91/55 L 99 08/23/19 08:17 73 99 08/23/19 08:12 67 100 08/23/19 08:07 68 99 08/23/19 08:05 75 100/56 L 08/23/19 08:02 82 100 08/23/19 07:57 77 99 08/23/19 07:52 83 111/64 99 08/23/19 07:47 84 100 08/23/19 07:42 75 100 08/23/19 07:37 91 H 100 08/23/19 07:36 76 119/73 08/23/19 07:32 96 H 100 08/23/19 07:29 87 91 08/23/19 07:27 89 99 08/23/19 07:22 111 H 99 08/23/19 07:17 86 100 08/23/19 07:14 84 93 08/23/19 07:12 89 98 08/23/19 07:07 99 H 99 08/23/19 07:03 36.5 C 20 08/23/19 07:02 73 99 08/23/19 07:00 18 08/23/19 06:57 79 100 08/23/19 06:52 85 100 08/23/19 06:50 100 H 106/63 08/23/19 06:49 75 94/47 L 08/23/19 06:47 98 H 100 08/23/19 06:45 18 08/23/19 06:43 67 114/66 08/23/19 06:42 84 100 08/23/19 06:38 93 H 123/53 L 08/23/19 06:37 70 100 08/23/19 06:34 83 124/68 08/23/19 06:32 87 100 08/23/19 06:30 18 08/23/19 06:29 98 H 118/74 08/23/19 06:27 85 99 08/23/19 06:25 18 08/23/19 06:24 80 107/65 08/23/19 06:22 71 100 08/23/19 06:20 18 08/23/19 06:18 70 122/62 08/23/19 06:17 83 99 08/23/19 06:16 90 126/83 08/23/19 06:15 18 08/23/19 06:13 97 H 116/72 08/23/19 06:12 85 108/62 98 08/23/19 06:11 18 08/23/19 06:10 104 H 106/57 L 08/23/19 06:08 99 H 131/70 08/23/19 06:07 81 99 08/23/19 06:02 76 99 08/23/19 05:57 79 98 08/23/19 05:52 100 H 100 08/23/19 05:47 100 H 100 08/23/19 05:42 77 100 08/23/19 05:37 70 100 08/23/19 05:32 73 100 08/23/19 04:47 79 123/61 08/23/19 04:38 36.3 C L 18 Coding Level of Care Code None Diagnoses Supervision of normal first Z34.00 Need for rhogam due to Rh negative mother Z29.13
[2019-08-23] MEDS ORDERED: Nursing to Pharmacy Communication ONE (16:19)
[2019-08-23] MEDS ORDERED: ACETAMINOPHEN 500 MG TAB PO PRN (17:38)
[2019-08-23] MEDS ORDERED: ACETAMINOPHEN 500 MG TAB ONE (17:47)
[2019-08-23] MEDS ORDERED: bisacodyL 10 MG SUPP PR PRN (21:01)
[2019-08-23] MEDS ORDERED: BENZOCAINE 20% AER SPR 82.5 GM CAN EXT PRN (21:01)
[2019-08-23] MEDS ORDERED: SUPERCREAM 0.870% 15 GM JAR EXT PRN (21:01)
[2019-08-23] MEDS ORDERED: DIPHTHERIA/TETANUS/PERTUSSIS 0.5 ML SYR/VIAL IM ONE (21:01)
[2019-08-23] MEDS ORDERED: ACETAMINOPHEN 325 MG TAB PO PRN (21:01)
[2019-08-23] MEDS ORDERED: HYDROCORTISONE ACETATE 25 MG SUPP PR PRN (21:01)
--- NOTE | 2019-08-23 21:38 | Anesthesia Procedure Note ---
Date of Service August 23, 2019 Anesthesia Post Epidural Note Vital Signs Vital Signs: Temp Pulse Resp BP Pulse Ox 98.2 F 71 18 130/66 100 08/23/19 20:50 08/23/19 21:35 08/23/19 21:20 08/23/19 21:35 08/23/19 20:48 Pain Intensity Lower Back: Pain Intensity: 5 Notes Mental Status: alert / awake / arousable and participated in evaluation Nausea / Vomiting: adequately controlled Pain: adequately controlled Airway Patency, RR, SpO2: stable & adequate BP & HR: stable & adequate Hydration State: stable & adequate Neuraxial Anesthesia: was administered and sensory block is resolving Anesthetic Complications: no major complications apparent and Pt Satisfied with anesthetic care Epidural: Removed without complications and With tip intact
--- NOTE | 2019-08-24 02:47 | Delivery Summary ---
DATE OF OPERATION: 08/23/2019 PROCEDURE: Normal spontaneous vaginal delivery with second-degree perineal laceration repair. SURGEON: Pedro Gamez MD PREOPERATIVE DIAGNOSES: 1. Single intrauterine at 38 weeks 3 days gestational age. 2. Rh negative. 3. Labor. POSTOPERATIVE DIAGNOSES 1. Single intrauterine at 38 weeks 3 days gestational age. 2. Rh negative. 3. Labor. 4. Status post delivery. ESTIMATED BLOOD LOSS: 300 mL. DRAINS: None. FLUIDS: Continuous lactated ringer. URINE OUTPUT: Not measured. COMPLICATIONS: None. FINDINGS: Viable male with weight of 6 pounds 7 ounces and Apgars of 6 and 9 at 1 and 5 minutes respectively. HOSPITAL COURSE: The patient was admitted for spontaneous labor. At first evaluation, she was found to be 1.5 cm dilated, progressed to 4 cm dilated and was admitted for labor. The patient became quite painful, and received an epidural shortly after admission. Contractions did spaced after that, and the patient progressed slowly and underwent artificial rupture of membranes in precision instrument and tool maker. The patient was noted not progress and was started on oxytocin per regular protocol. The patient was noted to have a prolonged deceleration shortly after starting the Pitocin and was discontinued, it was later restarted. The patient continue to progress in labor and progressed to complete-complete +2 station, at which time she felt the urge to push. DESCRIPTION OF PROCEDURE: The patient progressed to 10 cm dilated, 100% effaced, +2 station, pushed over intact perineum with epidural anesthesia and delivered a viable male infant, weight and Apgars as noted above. The delivered in DENNYS position, restituted to left transverse. No nuchal cord was noted. Body and shoulders quickly followed. was noted to be somewhat stunned upon delivery. The cord was shortly after delivery double clamped and cut. Cord blood was then obtained. Attention was then turned to deliver the placenta, which was delivered intact, 3-vessel cord, gentle cord traction. On inspection of perineum, vagina, and cervix, there was noted to be a small second-degree perineal laceration which was repaired with the traditional crown stitch. Needle, sponge and instrument counts were correct at the completion of the case with mother and stable in the immediate post-delivery. I attest to the content of the Intraoperative Record and any orders documented therein. Any exceptions are noted below. MTDD
--- NOTE | 2019-08-24 06:14 | Obstetrical Progress Note ---
Date of Service <Stuart Ozuna MD - Last Filed: 08/24/19 06:37> August 24, 2019 Assessment & Plan <Stuart Ozuna MD - Last Filed: 08/24/19 06:37> (1) Supervision of normal first : PPD#1 - continue routine care - patient is blood type A negative - encourage ambulation and oral intake (2) Need for rhogam due to Rh negative mother: Subjective <Stuart Ozuna MD - Last Filed: 08/24/19 06:37> Ms. Ontiveros is a 23 y/o female ; PPD #1 following spontaneous vaginal delivery; doing well this morning; having minimal abdominal cramping/pain; voiding well; tolerating meals overnight; and able to ambulate some; some persistent spotting with intermittent improvement this morning. Review of Systems Constitutional: denies fever; chills; sweats; headache Respiratory: denies shortness of breath, difficulty breathing Cardiac: denies chest pain; palpitations; chest pressure Breast: denies breast pain : denies dysuria Physical Exam <Stuart Ozuna MD - Last Filed: 08/24/19 06:37> General: alert; oriented; no acute distress Cardiac: RRR; no m/g/r Respiratory: CTAB a/p; no wheezes/rales/rhonchi; no increased work of breathing; symmetrical chest rise; no respiratory distress Abdomen: soft; NT/ND; bowel sounds positive Uterus: uterine fundus firm; palpable 2cm below umbilicus Lower extrem: no lower extremity edema or swelling; no deep calf pain; Santa's sign negative b/l Results & Data <Stuart Ozuna MD - Last Filed: 08/24/19 06:37> Vital Signs (Past 12 Hours) Vital Signs Temp Pulse Pulse Resp BP BP Pulse Ox 08/24/19 03:40 36.6 C 80 18 123/64 08/23/19 23:30 37.0 C 76 18 122/75 08/23/19 22:52 75 125/70 08/23/19 22:50 37.1 C 18 08/23/19 22:42 85 133/68 08/23/19 22:32 93 H 134/67 08/23/19 22:22 71 130/70 08/23/19 22:20 18 03/05/20 22:12 71 127/66 03/0520 22:02 76 120/72 0520 21:52 67 117/71 20 21:50 18 20 21:42 77 110/69 0520 21:35 71 18 130/66 0520 21:22 98 H 106/61 0520 21:20 18 08/23/19 21:12 84 115/75 08/23/19 21:09 81 111/56 L 08/23/19 21:03 75 118/66 0520 21:00 18 08/23/19 20:52 78 112/56 L 20 20:50 36.8 C 18 122/57 L 08/23/19 20:48 87 100 08/23/19 20:45 79 126/69 0520 20:43 83 100 20 20:39 76 91 0520 20:38 81 99 0520 20:33 71 100 20 20:29 74 88 L 0520 20:28 99 H 100 0520 20:23 73 100 0520 20:18 77 100 0520 20:15 104 H 24 129/57 L 0520 20:13 89 100 0520 20:08 84 100 0520 20:03 95 H 100 0520 20:00 97 H 127/66 0520 19:59 109 H 92 0520 19:58 78 100 0520 19:53 93 H 100 0520 19:48 107 H 100 0520 19:45 96 H 121/63 0520 19:43 94 H 100 0520 19:40 111 H 86 L 0520 19:38 113 H 100 0520 19:33 116 H 100 0520 19:32 115 H 126/63 0520 19:30 110 H 93 0520 19:28 106 H 100 05/20 19:23 109 H 100 0520 19:18 119 H 100 0520 19:13 112 H 100 05/20 19:12 95 H 121/73 08/23/19 19:08 99 H 100 08/23/19 19:05 36.8 C 08/23/19 19:03 116 H 100 08/23/19 19:00 22 08/23/19 18:58 92 H 100 08/23/19 18:53 105 H 100 08/23/19 18:49 103 H 91 08/23/19 18:48 109 H 100 08/23/19 18:43 111 H 100 08/23/19 18:38 94 H 100 08/23/19 18:33 106 H 100 08/23/19 18:30 111 H 123/70 08/23/19 18:28 107 H 100 08/23/19 18:23 91 H 100 08/23/19 18:18 94 H 100 08/23/19 18:15 77 121/58 L 08/23/19 18:13 75 100 Laboratory Results 08/24/19 Range/Units 06:04 Hgb 10.9 L (12.0-16.0) g/dL Hct 32.3 L (37-47) % Medications Administered Current Inpatient Medications Acetaminophen (Tylenol) 1,000 mg PO Q8H PRN PRN Reason: Pain Stop: 09/22/19 17:37 Acetaminophen (Tylenol) 650 mg PO Q6H PRN PRN Reason: Pain/SIEGEL/Fever Stop: 09/22/19 21:00 Benzocaine (Dermoplast Pain Relieving [place]) 1 appln EXT PRN PRN PRN Reason: Perineal Discomfort Stop: 09/22/19 21:00 Bisacodyl (Dulcolax) 5 mg PO [facility] Stop: 08/24/19 20:01 Bisacodyl (Dulcolax) 10 mg DC DAILY PRN PRN Reason: No BM on 2nd post- day Stop: 09/22/19 21:00 Cocaine HCl (Supercream 0.870%) 1 gm EXT BID PRN PRN Reason: Hemorrhoidal Inflammation Stop: 09/06/19 21:00 Docusate Sodium (Colace) 100 mg PO DAILY@08,21 CHERYL Stop: 09/23/19 07:59 Hydrocortisone (Anusol Hc) 25 mg DC BID PRN PRN Reason: Hemorrhoidal Inflammation Stop: 09/22/19 21:00 Lactated Ringer's (Lr) 1,000 mls @ 125 mls/hr IV .Q8H PRN; Protocol PRN Reason: L&D Protocol Stop: 08/25/19 04:23 Last Infusion: 08/23/19 15:30 Dose: 125 mls/hr Documented by: Oxytocin (Pitocin) 30 units in 500 mls @ 333.333 mls/hr IV .Q1H30M PRN; Protocol PRN Reason: Bleeding Control Stop: 09/22/19 04:23 Oxytocin (Pitocin) 30 units in 500 mls @ 999 mls/hr IV .Q31M PRN; Protocol PRN Reason: Labor Induction/Augmentation Stop: 08/25/19 09:19 Last Titration: 08/23/19 20:38 Dose: 59.94 units/hr, 999 mls/hr Documented by: Oxytocin (Pitocin) 30 units in 500 mls @ 333.333 mls/hr IV .Q1H30M PRN; Protocol PRN Reason: Bleeding Control Ibuprofen (Motrin) 600 mg PO Q4H PRN PRN Reason: Pain/SIEGEL/Cramping/Fever Stop: 09/22/19 21:00 Prenat Multivit/[place]/Iron/Folic Ac ( Vitamin) 1 tab PO DAILY@08 CHERYL Stop: 09/23/19 07:59 <Pedro Gamez MD - Last Filed: 08/24/19 07:33> Co-Signing Physician Notes Patient seen and evaluated and agree with the above findings in plan. Continue routine care Resident Activity Tracking <Stuart Ozuna MD - Last Filed: 08/24/19 06:37> Resident Involvement: Resident Care Provided Care Provided: OB Delivery
[2019-08-24 06:27] LABS: Hematocrit (blood only) 32.3 % (37-47); Hemoglobin 10.9 g/dL (12.0-16.0)
[2019-08-24] MEDS: DOCUSATE SODIUM 100 MG CAP PO SCH ×2 (08:01→20:49)
[2019-08-24] MEDS: PRENATAL VITAMIN 1 TAB PO SCH (08:01)
[2019-08-24] MEDS: IBUPROFEN 600 MG TAB PO PRN (08:02)
[2019-08-24] MEDS ORDERED: bisacodyL 5 MG TABEC PO SCH (20:00)
[2019-08-25] MEDS: IBUPROFEN 600 MG TAB PO PRN (03:30)
--- NOTE | 2019-08-25 06:06 | Obstetrical Progress Note ---
Date of Service <Stuart Ozuna MD - Last Filed: 08/25/19 07:01> August 25, 2019 Assessment & Plan <Stuart Ozuna MD - Last Filed: 08/25/19 07:01> (1) Supervision of normal first : PPD#2 - continue routine care - patient is blood type A negative - encourage ambulation and oral intake Subjective <Stuart Ozuna MD - Last Filed: 08/25/19 07:01> Ms. Ontiveros is a 23 y/o female ; PPD #2 following spontaneous vaginal delivery; doing well this morning; having minimal abdominal cramping/pain; voiding well; tolerating meals overnight; and able to ambulate some; some persistent spotting with intermittent improvement this morning. Review of Systems Constitutional: denies fever; chills; sweats; headache Respiratory: denies shortness of breath, difficulty breathing Cardiac: denies chest pain; palpitations; chest pressure Breast: denies breast pain : denies dysuria Physical Exam <Stuart Ozuna MD - Last Filed: 08/25/19 07:01> General: alert; oriented; no acute distress Cardiac: RRR; no m/g/r Respiratory: CTAB a/p; no wheezes/rales/rhonchi; no increased work of breathing; symmetrical chest rise; no respiratory distress Abdomen: soft; NT/ND; bowel sounds positive Uterus: uterine fundus firm; palpable 3cm below umbilicus Lower extrem: no lower extremity edema or swelling; no deep calf pain; Santa's sign negative b/l Results & Data <Stuart Ozuna MD - Last Filed: 08/25/19 07:01> Vital Signs (Past 12 Hours) Vital Signs Temp Pulse Resp BP Pulse Ox 08/24/19 23:45 36.6 C 83 18 118/68 98 08/24/19 19:48 36.6 C 70 18 125/66 99 Laboratory Results 08/24/19 Range/Units 06:04 Hgb 10.9 L (12.0-16.0) g/dL Hct 32.3 L (37-47) % Medications Administered Current Inpatient Medications Acetaminophen (Tylenol) 1,000 mg PO Q8H PRN PRN Reason: Pain Stop: 09/22/19 17:37 Acetaminophen (Tylenol) 650 mg PO Q6H PRN PRN Reason: Pain/SIEGEL/Fever Stop: 09/22/19 21:00 Benzocaine (Dermoplast Pain Relieving [place]) 1 appln EXT PRN PRN PRN Reason: Perineal Discomfort Stop: 09/22/19 21:00 Last Admin: 08/24/19 08:10 Dose: 1 appln Documented by: Bisacodyl (Dulcolax) 10 mg SC DAILY PRN PRN Reason: No BM on 2nd post- day Stop: 09/22/19 21:00 Cocaine HCl (Supercream 0.870%) 1 gm EXT BID PRN PRN Reason: Hemorrhoidal Inflammation Stop: 09/06/19 21:00 Docusate Sodium (Colace) 100 mg PO DAILY@08, [facility] Stop: 09/23/19 07:59 Last Admin: 08/24/19 20:49 Dose: 100 mg Documented by: Hydrocortisone (Anusol Hc) 25 mg SC BID PRN PRN Reason: Hemorrhoidal Inflammation Stop: 09/22/19 21:00 Oxytocin (Pitocin) 30 units in 500 mls @ 333.333 mls/hr IV .Q1H30M PRN; Protocol PRN Reason: Bleeding Control Stop: 09/22/19 04:23 Oxytocin (Pitocin) 30 units in 500 mls @ 999 mls/hr IV .Q31M PRN; Protocol PRN Reason: Labor Induction/Augmentation Stop: 08/25/19 09:19 Last Titration: 08/23/19 20:38 Dose: 59.94 units/hr, 999 mls/hr Documented by: Oxytocin (Pitocin) 30 units in 500 mls @ 333.333 mls/hr IV .Q1H30M PRN; Protocol PRN Reason: Bleeding Control Ibuprofen (Motrin) 600 mg PO Q4H PRN PRN Reason: Pain/SIEGEL/Cramping/Fever Stop: 09/22/19 21:00 Last Admin: 08/25/19 03:30 Dose: 600 mg Documented by: Prenat Multivit/[place]/Iron/Folic Ac ( Vitamin) 1 tab PO DAILY@08 [facility] Stop: 09/23/19 07:59 Last Admin: 08/24/19 08:01 Dose: 1 tab Documented by: <Gwendolyn Lopez MD, FACOG - Last Filed: 08/25/19 07:42> Co-Signing Physician Notes Resident Physician Supervision Note: I interviewed and examined the patient. Discussed with Dr. Ozuna and agree with findings and plan as documented in the note. Any exceptions or clarifications are listed here: Doing well. Plan d/c today. Instructions given. Documented By: Gwendolyn Lopez MD, FACOG Resident Activity Tracking <Stuart Ozuna MD - Last Filed: 08/25/19 07:01> Resident Involvement: Resident Care Provided Care Provided: OB Delivery
[2019-08-25] MEDS: PRENATAL VITAMIN 1 TAB PO SCH (09:19)
[2019-08-25] MEDS: DOCUSATE SODIUM 100 MG CAP PO SCH (09:19)
== END 2019-08-25 14:35 | disposition home or self-care (01) | DRG 807 ==
LOC: OPB 01:50 → 4S1 01:52 → 4S2 23:21

== ENCOUNTER 2021-09-26 08:15 | Inpatient (IN) ==
[2021-09-26] MEDS: LACTATED RINGER'S 1,000 ML IV PRN ×3 (11:00→13:03)
[2021-09-26] MEDS ORDERED: OXYTOCIN 30 UNITS/500 ML BAG IV PRN ×3 (11:08→17:32)
[2021-09-26] MEDS ORDERED: SODIUM CHLORIDE 0.9% INJ 10 ML VIAL ONE (11:13)
[2021-09-26] MEDS ORDERED: fentaNYL citrate 100 MCG/2 ML VIAL ONE (11:13)
[2021-09-26] MEDS ORDERED: ePHEDrine sulfate 50 MG/ML AMP ONE (11:13)
[2021-09-26] MEDS ORDERED: fentaNYL 2MCG/ML ROPIVACAINE 1.25MG/ML 100 ML BAG EPI ONE (11:14)
[2021-09-26] MEDS ORDERED: BUPIVACAINE 0.25% 30 ML VIAL ONE (11:14)
[2021-09-26 11:33] LABS: Hematocrit (blood only) 32.6 % (37-47); Hemoglobin 11.5 g/dL (12.0-16.0); Mean Corpuscular Hemoglobin 30.9 pg (25-34); Mean Corpuscular Volume 87.6 fL (80-100); Mean Platelet Volume 9.7 fL (7.4-10.4); Platelet Count 241 K/uL (130-400); RDW Coefficient of Variation 13.2 % (11.5-14.5); RDW Standard Deviation 42.5 fL (36.4-46.3); Red Blood Count 3.72 M/uL (4.2-5.4); White Blood Count 12.95 K/uL (4.8-10.8)
[2021-09-26] MEDS ORDERED: fentaNYL 2MCG/ML ROPIVACAINE 1.25MG/ML 100 ML BAG EPI PRN (11:33)
[2021-09-26] MEDS ORDERED: NALOXONE HCL 1 MG in SODIUM CHLORIDE 0.9% 1000ML 1,000 ML IV PRN (11:33)
[2021-09-26] MEDS ORDERED: NALOXONE HCL 0.4 MG/1 ML VIAL/CARP IV PRN (11:33)
[2021-09-26] MEDS ORDERED: diphenhydrAMINE 50 MG/ML VIAL IV PRN (11:33)
[2021-09-26] MEDS ORDERED: ONDANSETRON INJ 2 MG/ML 2 ML VIAL IV PRN ×2 (11:33→18:06)
[2021-09-26] MEDS ORDERED: NALBUPHINE HCL INJ 10 MG/ML AMP IV PRN (11:33)
[2021-09-26] MEDS ORDERED: ePHEDrine sulfate 50 MG/ML AMP IV PRN (11:33)
--- NOTE | 2021-09-26 11:38 | Anesthesiology Consultation ---
Date of Service September 26, 2021 History Height/Weight Height: 5 ft 2 in Weight: 59.421 kg Allergies Allergy/AdvReac Type Severity Reaction Status Date / Time Cephalosporins Allergy Severe SEVERE Verified 09/25/21 14:18 HIVES Medications Home Medications Medication Instructions Recorded Confirmed Last Taken prenat.vits,garth,[id number] 1 tab PO DAILY 09/11/21 09/26/21 1 Day Ago ~09/25/21 1 tab Active Medications Generic Name Dose Route Start Last Admin Trade Name Cordell PRN Reason Stop Dose Admin Lactated Ringer's 1,000 mls @ 125 mls/hr 09/26/21 11:08 09/26/21 11:00 Lr IV 09/28/21 11:07 999 mls/hr .Q8H PRN Administration L&D Protocol Protocol NPO Date Last Intake of Fluids: 09/26/21 Time Last Intake of Fluids: 11:10 Date Last Intake of Solids: 09/25/21 Time Last Intake of Solids: 20:00 Past Medical History Medical History Varicella vaccination Exercise / Class Metabolic Activity II 4-5 Yardwork/Stairs/Walk up hill Past Family History Family History Mother Breast cancer Past Anesthesia History No Hx of Anesthesia Complications and No Family Hx of Anesthesia Complications History of PONV No Hx of PONV and No Hx of Motion Sickness Social History Smoking Status: Former smoker Hx Alcohol Use: No Hx Substance Use: No Physical Exam Vital Signs Last Vital Signs Temp 36.6 C 09/26/21 08:25 Pulse 57 L 09/26/21 11:00 Resp 16 09/26/21 08:19 BP 113/65 09/26/21 11:00 Testing Laboratory Results 09/26/21 11:16
[2021-09-26 11:42] LABS: Mean Corpuscular Hgb Conc 35.3 g/dL (32-36)
--- NOTE | 2021-09-26 12:24 | History & Physical Report ---
Date of Service September 26, 2021 Assessment & Plan (1) Active labor at term: (2) Need for rhogam due to Rh negative mother: Plan: pt has been admitted. making some cx change but ctx pattern unclear since epidural, will see how arom helps pattern but if not regular, rec pitocin. pt agreeable. fhts categ 1. occas variable but right now categ 1. Admission and Anticipated Discharge Date Admission Date: September 26, 2021 History of Present Illness Chief Complaint: contractions Primary Care Provider: Eduardo Mesa PA-C 26yo at 38+wks ega presents to L&D with regular ctx. Examined after 2hr on labor and delivery and changed from 3cm, to 4cm with more pain and more regular ctx pattern. No rom. Admitted and desired epidural and now comfortable with such. 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 by cfDNA PNL rh neg, ri, gbs neg OBH: x 1 GYNH: nl paps no stds Allergies Allergy/AdvReac Type Severity Reaction Status Date / Time Cephalosporins Allergy Severe SEVERE Verified 09/25/21 14:18 HIVES Home Medications Medication Instructions Recorded Confirmed Type prenat.vits,garth,[id number] 1 tab PO DAILY 09/11/21 09/26/21 History Patient History Medical History (Updated 09/26/21 @ 12:23 by Malou Alegria MD, FACOG) Varicella vaccination Family History Mother Breast cancer Social History (Updated 03/23/21 @ 14:31 by Marj Ortiz) Smoking Status: Former smoker Hx Alcohol Use: No Hx Substance Use: No Preferred Language: Cambodian Communication Ability: Effective [employer] Required: No Beliefs That Will Affect Care: None marital status: Single marital status details: kain-Seth Giron (26) [phone] Current Living Situation: Significant Other Current Living Situation Comment: lives with fob and son, no pets. current occupational status: employed current occupation: [employer] Feels Safe at Home: Yes Safety Concerns: Feels Safe At This Time Assistive Devices: None Review of Systems as per Subjective / HPI Physical Exam Constitutional: WD/WN, vitals as above Gastrointestinal (Abdomen): soft gravid nt Neurologic: grossly normal Psychiatric: A+Ox3, euthymic affect Genitourinary: Manual OB Exam: + cervical dilation 6 cm, + cervical effacement (75%), + station -2 and + amniotic fluid (AROM) clear OB Exam Monitor Tracing: + external FHT monitor used, + external uterine monitor used (q5? not traced well. ), + category II, + normal FHT variability and + variable decelerations (occasional) Results & Data ([facility]) Vital Signs (Past 12 Hours) Vital Signs Temp Pulse Resp BP Pulse Ox 09/26/21 12:18 62 93 09/26/21 12:15 98.4 F 68 18 102/51 L 100 09/26/21 12:10 57 L 100 09/26/21 12:07 68 92 09/26/21 12:05 70 97 09/26/21 12:00 70 100 09/26/21 11:57 64 100/56 L 09/26/21 11:55 72 100 09/26/21 11:53 65 82 L 09/26/21 11:50 62 99 09/26/21 11:46 65 116/55 L 09/26/21 11:45 70 100 09/26/21 11:43 72 119/56 L 90 09/26/21 11:40 76 100 09/26/21 11:37 76 90 09/26/21 11:35 69 100 09/26/21 11:00 57 L 113/65 09/26/21 08:25 97.9 F 09/26/21 08:23 96 H 115/69 09/26/21 08:19 16 Code Status & VTE Plan VTE Prophylaxis Plan VTE Prophylaxis will be ordered: No Coding Level of Care Code None Diagnoses Active labor at term Need for rhogam due to Rh negative mother Z29.13
[2021-09-26] MEDS ORDERED: OR MISCELLANEOUS MED XX ONE (14:44)
--- NOTE | 2021-09-26 14:58 | Labor Progress Brief Note ---
Date of Service September 26, 2021 Subjective comfortable. one leg too numb to get into knee chest position Assessment & Plan (1) Active labor at term: (2) Need for rhogam due to Rh negative mother: Plan: will try amnioinfusion in case could help variables. as infusing, +spont accel noted and variability good. did discuss possible need for c/s if decels persist or i determine these are persistent late decels. so far tracing is categ 2. pt aware, consent reviewed and signed. anesth aware of possibility. Admission and Anticipated Discharge Date Admission Date: September 26, 2021 Physical Exam Constitutional: WD/WN, vitals as above Neurologic: grossly normal Psychiatric: A+Ox3, euthymic affect Genitourinary: Manual OB Exam: + cervical dilation (6-7cm), + cervical effacement (thick anterior lip) and + station -2 OB Exam Monitor Tracing: + external FHT monitor used (variables noted ? some lates or slow return to baseine of variable), + intra-uterine pressure catheter used (mvu's adeq ), + category II and + normal FHT variability Results & Data ([facility]) Vital Signs (Past 12 Hours) Vital Signs Temp Pulse Resp BP Pulse Ox 09/26/21 14:50 62 100 09/26/21 14:45 63 96 09/26/21 14:40 60 100 09/26/21 14:39 133 H 102/63 86 L 09/26/21 14:35 83 100 09/26/21 14:30 63 86 L 09/26/21 14:25 61 100 09/26/21 14:23 55 L 107/55 L 09/26/21 14:20 65 100 09/26/21 14:17 64 91 09/26/21 14:15 59 L 100 09/26/21 14:10 57 L 100 09/26/21 14:08 59 L 105/59 L 09/26/21 14:05 59 L 96 09/26/21 14:03 61 94 09/26/21 14:00 66 100 09/26/21 13:56 62 90/54 L 09/26/21 13:55 73 100 09/26/21 13:54 66 89/53 L 09/26/21 13:50 57 L 100 09/26/21 13:49 16 09/26/21 13:45 71 100 09/26/21 13:40 57 L 100 09/26/21 13:38 56 L 105/60 09/26/21 13:35 58 L 100 09/26/21 13:30 96 H 100 09/26/21 13:25 94 H 100 09/26/21 13:23 90 97/56 L 09/26/21 13:20 76 100 09/26/21 13:18 83 92 09/26/21 13:15 58 L 100 09/26/21 13:10 54 L 100 09/26/21 13:09 55 L 108/59 L 09/26/21 13:05 97.7 F 61 16 100 09/26/21 13:00 62 100 09/26/21 12:55 74 100 09/26/21 12:53 58 L 102/54 L 09/26/21 12:50 63 100 09/26/21 12:45 62 100 09/26/21 12:40 63 100 09/26/21 12:35 61 100 09/26/21 12:30 60 100 09/26/21 12:28 61 93 09/26/21 12:25 64 100 09/26/21 12:23 71 117/71 09/26/21 12:20 59 L 100 09/26/21 12:18 62 93 09/26/21 12:15 98.4 F 68 18 102/51 L 100 09/26/21 12:10 57 L 100 09/26/21 12:07 68 92 09/26/21 12:05 70 97 09/26/21 12:00 70 100 09/26/21 11:57 64 100/56 L 09/26/21 11:55 72 100 09/26/21 11:53 65 82 L 09/26/21 11:50 62 99 09/26/21 11:46 65 116/55 L 09/26/21 11:45 70 100 09/26/21 11:43 72 119/56 L 90 09/26/21 11:40 76 100 09/26/21 11:37 76 90 09/26/21 11:35 69 100 09/26/21 11:00 57 L 113/65 09/26/21 08:25 97.9 F 09/26/21 08:23 96 H 115/69 09/26/21 08:19 16 Coding Level of Care Code None Diagnoses Active labor at term Need for rhogam due to Rh negative mother Z29.13
--- NOTE | 2021-09-26 15:44 | Obstetrical Progress Note ---
Date of Service September 26, 2021 Assessment & Plan (1) Active labor at term: (2) Need for rhogam due to Rh negative mother: Plan: categ 1 fhts. will see how mvu's look over next 30min or so and if needed and fhts remain categ 1, start pitocin. will d/w nursing. Admission and Anticipated Discharge Date Admission Date: September 26, 2021 Subjective strip review Physical Exam Genitourinary: OB Exam Monitor Tracing: + external FHT monitor used, + intra- uterine pressure catheter used (inadeq mvu's), + category I and + normal FHT variability Results & Data ([facility]) Vital Signs (Past 12 Hours) Vital Signs Temp Pulse Resp BP Pulse Ox 09/26/21 15:40 60 09/26/21 15:39 62 91 09/26/21 15:38 55 L 110/62 09/26/21 15:35 53 L 100 09/26/21 15:30 56 L 100 09/26/21 15:25 54 L 100 09/26/21 15:23 55 L 107/61 09/26/21 15:20 61 100 09/26/21 15:15 57 L 100 09/26/21 15:11 59 L 92 09/26/21 15:10 61 96 09/26/21 15:08 52 L 109/57 L 09/26/21 15:05 56 L 18 100 09/26/21 15:00 58 L 100 09/26/21 14:59 61 90 09/26/21 14:55 59 L 100 09/26/21 14:54 60 116/59 L 87 L 09/26/21 14:50 97.7 F 62 20 100 09/26/21 14:45 63 96 09/26/21 14:40 60 100 09/26/21 14:39 133 H 102/63 86 L 09/26/21 14:35 83 100 09/26/21 14:30 63 86 L 09/26/21 14:25 61 100 09/26/21 14:23 55 L 107/55 L 09/26/21 14:20 65 100 09/26/21 14:17 64 91 09/26/21 14:15 59 L 100 09/26/21 14:10 57 L 100 09/26/21 14:08 59 L 105/59 L 09/26/21 14:05 59 L 96 09/26/21 14:03 61 94 09/26/21 14:00 66 100 09/26/21 13:56 62 90/54 L 09/26/21 13:55 73 100 09/26/21 13:54 66 89/53 L 09/26/21 13:50 57 L 100 09/26/21 13:49 16 09/26/21 13:45 71 100 09/26/21 13:40 57 L 100 09/26/21 13:38 56 L 105/60 09/26/21 13:35 58 L 100 09/26/21 13:30 96 H 100 09/26/21 13:25 94 H 100 09/26/21 13:23 90 97/56 L 09/26/21 13:20 76 100 09/26/21 13:18 83 92 09/26/21 13:15 58 L 100 09/26/21 13:10 54 L 100 09/26/21 13:09 55 L 108/59 L 09/26/21 13:05 97.7 F 61 16 100 09/26/21 13:00 62 100 09/26/21 12:55 74 100 09/26/21 12:53 58 L 102/54 L 09/26/21 12:50 63 100 09/26/21 12:45 62 100 09/26/21 12:40 63 100 09/26/21 12:35 61 100 09/26/21 12:30 60 100 09/26/21 12:28 61 93 09/26/21 12:25 64 100 09/26/21 12:23 71 117/71 09/26/21 12:20 59 L 100 09/26/21 12:18 62 93 09/26/21 12:15 98.4 F 68 18 102/51 L 100 09/26/21 12:10 57 L 100 09/26/21 12:07 68 92 09/26/21 12:05 70 97 09/26/21 12:00 70 100 09/26/21 11:57 64 100/56 L 09/26/21 11:55 72 100 09/26/21 11:53 65 82 L 09/26/21 11:50 62 99 09/26/21 11:46 65 116/55 L 09/26/21 11:45 70 100 09/26/21 11:43 72 119/56 L 90 09/26/21 11:40 76 100 09/26/21 11:37 76 90 09/26/21 11:35 69 100 09/26/21 11:00 57 L 113/65 09/26/21 08:25 97.9 F 09/26/21 08:23 96 H 115/69 09/26/21 08:19 16 PG Care Time/CCT Total # of Minutes Spent Total Time Spent with Patient: Total time spent is greater than 50% in coordination of care (as documented) at patient's floor/unit and/or counseling patient: Coding Level of Care Code None Diagnoses Active labor at term Need for rhogam due to Rh negative mother Z29.13
--- NOTE | 2021-09-26 17:25 | Delivery Summary ---
Vaginal Delivery Summary Date of Service September 26, 2021 Vaginal Delivery Summary and 2nd Degree LAC Called to see patient due to decelerations. Cervix rim/100/0-+1, good descent with contractions. Rim reduced with one push. Peña had been removed. FSE had been applied as could not get external heart rate. FHTs 90-130 Pateint then pushed over 2 contractions to deliver a viable female infant Apgars 8 and 9 via over 2nd degree perineal laceration. Mouth and nose bulb suctioned at perineum. Shoulders and body delivered with ease after good maternal effort. Infant was vigorous and crying at . Cord clamped at 30 seconds of life and infant to maternal abdomen where the cord was then doubly clamped and cut. Placenta delivered spontaneously and intact, three-vessel cord. Hemostasis achieved with dilute pitocin and uterine massage. Cervix and sulci intact. Laceration repaired in routine fashion with 3-0 vicryl. EBL 300 cc. Mother and baby stable in recovery. [facility] Vaginal Delivery Charge Delivery Type Details: and 2nd Degree LAC
[2021-09-26] MEDS ORDERED: ACETAMINOPHEN 325 MG TAB PO PRN (17:32)
[2021-09-26] MEDS ORDERED: DIPHTHERIA/TETANUS/PERTUSSIS 0.5 ML SYR/VIAL IM ONE (17:32)
[2021-09-26] MEDS ORDERED: oxyCODONE/ACETAMINOPHEN 5mg/325mg TAB PO PRN (17:32)
[2021-09-26] MEDS ORDERED: HYDROCORTISONE ACETATE 25 MG SUPP PR PRN (17:32)
[2021-09-26] MEDS ORDERED: BENZOCAINE 20% AER SPR 82.5 GM CAN EXT PRN (17:32)
[2021-09-26] MEDS ORDERED: OXYTOCIN 20 UNITS in LACTATED RINGER'S 1,000 ML IV SCH (17:45)
--- NOTE | 2021-09-26 17:55 | Anesthesia Procedure Note ---
Date of Service September 26, 2021 Anesthesia Post Epidural Note Vital Signs Vital Signs: Temp Pulse Resp BP Pulse Ox 36.5 C 115 H 18 128/65 98 09/26/21 14:50 09/26/21 17:31 09/26/21 17:40 09/26/21 17:31 09/26/21 17:10 Notes Mental Status: alert / awake / arousable and participated in evaluation Nausea / Vomiting: adequately controlled Pain: adequately controlled Airway Patency, RR, SpO2: stable & adequate BP & HR: stable & adequate Hydration State: stable & adequate Neuraxial Anesthesia: was administered and sensory block is resolving Anesthetic Complications: no major complications apparent and Pt Satisfied with anesthetic care Epidural: Removed without complications and With tip intact
[2021-09-26] MEDS: IBUPROFEN 600 MG TAB PO PRN (22:51)
[2021-09-26] MEDS: DOCUSATE SODIUM 100 MG CAP PO SCH (22:51)
[2021-09-27] MEDS: IBUPROFEN 600 MG TAB PO PRN ×2 (06:33→16:45)
--- NOTE | 2021-09-27 07:27 | Obstetrical Progress Note ---
Date of Service September 27, 2021 Assessment & Plan (1) examination following vaginal delivery: stable, routine care. desires dc home later today. breast, rh neg, baby rh neg, ri. instructions reviewed. f/u 6wks pp check. Day #:: 1 Subjective Ambulation: ambulating normally Voiding: no voiding problems Diet Tolerance:: regular diet Lochia:: Small Feeding Type:: breast feeding denies pain issues. Constitutional: + as per Subjective / HPI Physical Exam Constitutional WD/WN, vitals as above Respiratory normal respiratory effort, lungs clear to auscultation Cardiovascular Rate/Rhythm: regular rate and regular rhythm Gastrointestinal (Abdomen) Inspection/Auscultation: abdomen normal to inspection Percussion/Palpation: abdomen soft Fundus firm 2cm down Musculoskeletal nt calves no edema Neurologic grossly normal Psychiatric A+Ox3, euthymic affect Results & Data ([facility]) Vital Signs (Past 12 Hours) Vital Signs Temp Pulse Resp BP Pulse Ox 09/27/21 04:00 98.6 F 67 18 95/59 L 99 09/26/21 23:00 97.9 F 63 18 98/59 L 100 09/26/21 22:50 97.9 F 63 18 98/59 L 100
[2021-09-27] MEDS ORDERED: PRENATAL VITAMIN 1 TAB PO SCH (08:00)
[2021-09-27] MEDS: DOCUSATE SODIUM 100 MG CAP PO SCH (08:00)
== END 2021-09-27 18:55 | disposition home or self-care (01) | DRG 806 ==
LOC: OPB 08:15 → 4S1 08:17 → 4E2 22:35